=== PATIENT | female | born 1950 | race Caucasian/White ===

== ENCOUNTER 2019-01-07 11:24 | Observation (INO) ==
--- NOTE | 2019-01-07 11:58 | Emergency Department Note ---
Disposition Clinical Impression: UGI bleed Disposition: Admitted As Inpatient Condition: Good Forms: ED Satisfaction Letter Time of Disposition: 12:39 General Adult HPI - General Chief complaint: ED GI Bleed Stated complaint: ABD Pain Rectal Bleeding Time Seen by Provider: 01/07/19 11:42 Source: patient Limitations: no limitations - History of Present Illness HPI Narrative: Patient complains of 4 days of progressive upper abdominal discomfort and progressively darkening stool, to the point that it was jet black and sticky/tarry yesterday and the day before. No history of similar episodes in the past. She has had an episode or 2 of vomiting, nonbloody, nonbilious. She has not been taking Pepto-Bismol, multivitamins or iron supplementation. No history of ulcers or esophageal varices. No history of liver disease. She has never been a drinker. She has felt dizzy, no syncope or presyncope. No chest pain or shortness of breath. She does complain of fatigue. She is not on any anticoagulants. Pain Scale: 6 - Related Data Home Medications Medication Instructions Recorded Confirmed Aspirin [Lo-Dose Aspirin EC] 01/07/19 Dapagliflozin Propanediol [Farxiga] 01/07/19 Glyburide-Metformin 5-500 mg 01/07/19 Lisinopril [Zestril] 01/07/19 Potassium Chloride [Klor-Con 10] 01/07/19 Simvastatin [Zocor] 01/07/19 Allergies Allergy/AdvReac Type Severity Reaction Status Date / Time codeine Allergy Hives Verified 01/07/19 11:30 Limitations: ROS unobtainable due to patients medical condition Past Medical History - Past Medical History Medical history: Reports: diabetes, hypertension Psychiatric history: Reports: no psych history - Social History Smoking Status: Never smoker Smokeless Tobacco Status: No Alcohol use: Reports: none Drug use: Reports: none Physical Exam Vital signs noted, please see nurses notes. General: Well-developed, well-nourished patient lying in bed who appears non- toxic. Head: Atraumatic, normocephalic. Eyes: Sclera anicteric. Conjunctiva pink. ENT: Mucous membranes moist. Heart: Regular rate and rhythm without appreciable murmur. Lungs: Normal respiratory pattern without distress, lungs clear to auscultation b/l. Abdomen: Soft, localized epigastric tenderness to palpation, none in the right upper quadrant; non-distended, no guarding or peritoneal signs. Skin: Warm and dry without rash. No petechiae. Neurologic: Awake and alert with normal speech and mental status. Pupils are equal. Moves all extremities equally well. No focal deficits or lateralizing signs. Psychiatric: Mood and affect appropriate. Rectal: No visible hemorrhoids, dark brown stool, sent to the lab for Hemoccult testing. No palpable masses. - General Limitations: no limitations General appearance: alert, in no apparent distress Course Vital Signs Temperature 98.1 F 01/07/19 11:27 Pulse Rate 80 01/07/19 11:27 Respiratory Rate 18 01/07/19 11:27 Blood Pressure 131/79 01/07/19 11:27 O2 Sat by Pulse Oximetry 96 01/07/19 11:27 Temperature 98.1 F 01/07/19 11:27 Pulse Rate 80 01/07/19 11:27 Respiratory Rate 18 01/07/19 11:27 Blood Pressure 131/79 01/07/19 11:27 O2 Sat by Pulse Oximetry 96 01/07/19 11:27 Oxygen Delivery Oxygen Delivery Room Air Medical Decision Making - MDM Narrative Medical decision making narrative: Laboratory results reviewed. Discussed with Dr. Barroso on for endoscopy. The patient to come into the hospital with plans for scope tomorrow. We will admit to the hospitalist service. - Lab Data Result diagrams: 01/07/19 12:04 01/07/19 12:04 Lab Results 01/07/19 01/07/19 01/07/19 Range/Units 12:04 12:04 12:04 WBC 10.6 (4.3-11.1) K/mcL RBC 4.93 (3.82-4.97) M/mcL Hgb 14.1 (11.5-15.4) g/dL Hct 44.1 (35.3-44.9) % MCV 89.5 (83.0-100.0) fL MCH 28.6 (28.0-33.3) pg MCHC 32.0 (31.6-35.5) g/dL RDW 13.7 (11.5-14.5) % Plt Count 277 (140-400) K/mcL MPV 10.0 (9.4-12.4) fL PT 12.8 H (9.4-12.1) Seconds INR 1.1 Sodium 134 L (136-145) mEq/L Potassium 4.4 (3.5-5.1) mEq/L Chloride 102 (98-107) mEq/L Carbon Dioxide 23 (23-29) mEq/L BUN 20 (8-23) mg/dL Creatinine 0.87 (0.60-1.20) mg/dL Est GFR ( Amer) > 60 (> 60) Est GFR (Non-Af Amer) > 60 (> 60) BUN/Creatinine Ratio 23 (6-26) Glucose 113 H (70-105) mg/dL Calculated Osmolality 281 (280-300) Calcium 9.4 (8.6-10.3) mg/dL Stool Occult Bld Scrn (Negative) Blood Type 01/07/19 01/07/19 Range/Units 12:04 Unknown WBC (4.3-11.1) K/mcL RBC (3.82-4.97) M/mcL Hgb (11.5-15.4) g/dL Hct (35.3-44.9) % MCV (83.0-100.0) fL MCH (28.0-33.3) pg MCHC (31.6-35.5) g/dL RDW (11.5-14.5) % Plt Count (140-400) K/mcL MPV (9.4-12.4) fL PT (9.4-12.1) Seconds INR Sodium (136-145) mEq/L Potassium (3.5-5.1) mEq/L Chloride (98-107) mEq/L Carbon Dioxide (23-29) mEq/L BUN (8-23) mg/dL Creatinine (0.60-1.20) mg/dL Est GFR ( Amer) (> 60) Est GFR (Non-Af Amer) (> 60) BUN/Creatinine Ratio (6-26) Glucose (70-105) mg/dL Calculated Osmolality (280-300) Calcium (8.6-10.3) mg/dL Stool Occult Bld Scrn Positive A (Negative) Blood Type A POSITIVE
[2019-01-07 12:17] LABS: Hematocrit 44.1 % (35.3-44.9); Hemoglobin 14.1 g/dL (11.5-15.4); Mean Corpuscular Hemoglobin 28.6 pg (28.0-33.3); Mean Corpuscular Volume 89.5 fL (83.0-100.0); Platelet Count 277 K/mcL (140-400); Red Blood Count 4.93 M/mcL (3.82-4.97); Red Cell Distribution Width 13.7 % (11.5-14.5); White Blood Count 10.6 K/mcL (4.3-11.1)
[2019-01-07] MEDS ORDERED: Mag Hydrox/Al Hydrox/Simeth 30 ML UDC PO STA (12:31)
[2019-01-07 12:32] LABS: INR 1.1; Prothrombin Time 12.8 Seconds (9.4-12.1)
[2019-01-07] MEDS ORDERED: Pantoprazole 40 MG VIAL IVP ONE (12:32)
[2019-01-07 12:35] LABS: BUN/Creatinine Ratio 23 (6-26); Blood Urea Nitrogen 20 mg/dL (8-23); Calcium 9.4 mg/dL (8.6-10.3); Carbon Dioxide 23 mEq/L (23-29); Chloride 102 mEq/L (98-107); Glucose 113 mg/dL (70-105); Osmolality,Calculated 281 (280-300); Potassium 4.4 mEq/L (3.5-5.1); Sodium 134 mEq/L (136-145); eGFR For African Americans > 60 (> 60); eGFR For Non-African Americans > 60 (> 60)
--- NOTE | 2019-01-07 13:38 | Internal Med History&Physical ---
Date of Encounter: 01/07/19 Time of Encounter: 06:10 Internal Medicine - H&P: HPI Chief complaint: abdomen pain History of present illness: Ms. Jackson is a 68 year old female Patient we spent physical history significant for hypertension and diabetes who presented with 4 day history of progressive worsening of abdomen pain associated with jet black and sticky/tarry stool and several episode of nausea with non-bloody vomiting. the patient also reported feeling dizzy and lightheaded however she denied any loss of consciousness. The patient deny any history of liver disease, history of peptic ulcer disease or taking nonsteroidal anti-inflammatory regular basis. the patient was evaluated by the ER staff and Hemoccult per stool was positive. GI was consulted for further evaluation and management and decision was made to admit the patient for further evaluation in a.m. and possible upper and lower endoscopy. 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 - Social History Smoking Status: Never smoker Smokeless Tobacco Status: No Alcohol use: none Drug use: none - Family History Mother Living Status: Cause of : cancer Hx Family Cardiac Disorders: Yes Hx Family Neurologic Disorders: Yes (CVA) Father Living Status: Cause of : GA Hx Family Cardiac Disorders: Yes Hx Family Neurologic Disorders: Yes (CVA) Internal Medicine - H&P: Meds Dapagliflozin Propanediol [Farxiga] 10 mg PO DAILY 01/07/19 [History] Glyburide/Metformin HCl [Glyburide-Metformin 5-500 mg] 2 tab PO BID 01/07/19 [History] Lisinopril [Zestril] 40 mg PO DAILY 01/07/19 [History] Potassium Chloride [Klor-Con 10] 10 meq PO DAILY 01/07/19 [History] Simvastatin [Zocor] 20 mg PO HS 01/07/19 [History] Omeprazole 40 mg PO BID 30 Days #120 tablet. 01/08/19 [Rx] Sucralfate [Carafate] 1 gm PO QIDAC #120 tablet 01/08/19 [Rx] Allergy/AdvReac Type Severity Reaction Status Date / Time codeine Allergy Hives Verified 01/08/19 12:36 All Systems PM: A 10-system review of systems was performed and is negative for pertinent findings except as documented above in the HPI. - Constitutional Vitals: Temp Pulse Resp BP Pulse Ox 98.1 F 75 16 136/67 99 01/07/19 11:27 01/07/19 12:47 01/07/19 12:47 01/07/19 12:47 01/07/19 12:47 Exam: General: Alert and oriented, not in acute distress. Cardiovascular:Normal S1 & S2, No JVD. Pulse regular. Lungs: clear to auscultation, no wheezes/rales Abdomen:Soft, non-tender, no rigidity. Extremities:No deformity or swelling Neurological:Normal cognition and motor skills. Non-focal Internal Med - H&P Results - Labs CBC & Chem 7: 01/07/19 16:26 01/08/19 00:35 Labs: Short CBC 01/07/19 Range/Units 12:04 WBC 10.6 (4.3-11.1) K/mcL Hgb 14.1 (11.5-15.4) g/dL Hct 44.1 (35.3-44.9) % Plt Count 277 (140-400) K/mcL BMP 01/07/19 12:04 Sodium 134 L Potassium 4.4 Chloride 102 Carbon Dioxide 23 BUN 20 Creatinine 0.87 Glucose 113 H Calcium 9.4 - Assessment and Plan (1) UGI bleed Status: Acute Assessment and plan: GI bleeding DD *Gastroenteritis *Gastritis *PUD *Hemorrhoids *Divericulitis *Esophageal varices PLAN: - IVF - NPO - H/H now and q 8 hr - Type and screen 2 U PRBC - Protonix 40 mg IV QD/BID - GI consult-> EGD/Colonoscopy - O2 to keep SpO2 > 92% - CBCD, BMP, INR/PTT in AM - Compression stocking BLE for DVT prophylaxis (2) Hypertension Status: Acute Assessment and plan: we will continue home medication and continue to monitor blood pressure Qualifiers: Hypertension type: unspecified Qualified Code(s): I10 - Essential (primary) hypertension (3) Diabetes Status: Acute Assessment and plan: we will start insulin sliding scale with moderate coverage Qualifiers: Diabetes mellitus type: type 2 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
[2019-01-07] MEDS ORDERED: Ondansetron 4 MG/2 ML VIAL IVP PRN (16:17)
[2019-01-07] MEDS ORDERED: Naloxone 0.4 MG/ML INJ IVP PRN (16:17)
[2019-01-07 16:45] LABS: Basophils # 0.1 K/mcL (0.0-0.2); Basophils % 0.7 %; Eosinophils # 0.4 K/mcL (0.0-0.6); Eosinophils % 2.8 %; Hematocrit 43.1 % (35.3-44.9); Hemoglobin 13.7 g/dL (11.5-15.4); Immature Granulocytes % 0.3 % (0-4); Lymphocytes # 4.4 K/mcL (0.6-4.6); Lymphocytes % 32.9 %; Mean Corpuscular HGB Conc 31.8 g/dL (31.6-35.5); Mean Corpuscular Hemoglobin 28.6 pg (28.0-33.3); Mean Platelet Volume 9.8 fL (9.4-12.4); Monocytes # 1.1 K/mcL (0.0-1.3); Neutrophils # 7.4 K/mcL (1.6-8.9); Platelet Count 282 K/mcL (140-400); Red Blood Count 4.79 M/mcL (3.82-4.97); Red Cell Distribution Width 13.6 % (11.5-14.5); Segmented Neutrophils % 55.3 %; White Blood Count 13.3 K/mcL (4.3-11.1)
[2019-01-07] MEDS: Pantoprazole 40 MG VIAL IVP SCH (17:16)
[2019-01-07] MEDS ORDERED: D5% in Water 1,000 ML IVC PRN (19:43)
[2019-01-07] MEDS ORDERED: *HR* Dextrose 50 % in Water (Syg) 50 ML SYRINGE IVP PRN (19:43)
[2019-01-07] MEDS ORDERED: Dextrose Gel 15 GM/37.5 ML TUBE PO PRN ×2 (19:43)
[2019-01-07 22:01] LABS: Estimated Average Glucose 189 mg/dl
[2019-01-08] MEDS: Insulin LISPRO 300 UNITS/3 ML VIAL SQ SCH ×3 (00:03→15:29)
[2019-01-08 01:00] LABS: INR 1.1
[2019-01-08 01:02] LABS: Activated Partial Thrombo Time 25.7 Seconds (26.0-36.0)
[2019-01-08 01:12] LABS: Alanine Aminotransferase 19 Units/L (7-52); Albumin 3.8 g/dL (3.5-5.7); Albumin/Globulin Ratio 1.2 (1.1-2.2); Alkaline Phosphatase 49 Units/L (34-104); Aspartate Amino Transferase 16 Units/L (13-39); BUN/Creatinine Ratio 17 (6-26); Bilirubin,Total 0.4 mg/dL (0.3-1.0); Blood Urea Nitrogen 16 mg/dL (8-23); Calcium 8.9 mg/dL (8.6-10.3); Carbon Dioxide 22 mEq/L (23-29); Chloride 100 mEq/L (98-107); Chol/HDL Ratio 3.9 (0-4.9); Cholesterol 122 mg/dL (< 200); Globulin 3.1 g/dL (2.4-3.5); Glucose 248 mg/dL (70-105); HDL Cholesterol 31 mg/dL (40-59); LDL Cholesterol,Calculated 55 mg/dL (0-99); Magnesium 1.9 mg/dL (1.6-2.6); Osmolality,Calculated 283 (280-300); Potassium 3.8 mEq/L (3.5-5.1); Sodium 132 mEq/L (136-145); Total Protein 6.9 g/dL (6.4-8.9); Triglycerides 181 mg/dL (< 150); eGFR For African Americans > 60 (> 60); eGFR For Non-African Americans > 60 (> 60)
[2019-01-08] MEDS: Pantoprazole 40 MG VIAL IVP SCH (06:00)
[2019-01-08] MEDS ORDERED: *HR* Midazolam HCl 5 MG/5 ML VIAL IVP ONE (12:01)
[2019-01-08] MEDS ORDERED: *HR* FentaNYL (PF) 100 MCG/2 ML VIAL ONE (12:01)
[2019-01-08 13:31] VITALS: BP 141/82
--- NOTE | 2019-01-08 13:45 | Discharge Summary ---
- NOTES TO OUTPATIENT PROVIDER Notes to Outpatient Provider: Follow up with surgery in 4 weeks for repeat EGD Orders not resulted at time of discharge: Pending orders 01/08/19 12:37 Surgical Pathology [PTH] Routine Date of Encounter: 01/08/19 Time of Encounter: 13:00 - Discharge Diagnosis (1) UGI bleed Priority: Secondary Status: Acute (2) Hypertension Priority: Secondary Status: Acute Qualifiers: Hypertension type: unspecified Qualified Code(s): I10 - Essential (primary) hypertension (3) Diabetes Priority: Secondary Status: Acute Qualifiers: Diabetes mellitus type: type 2 Diabetes mellitus alf insulin use: without alf use Diabetes mellitus complication status: without complication Qualified Code(s): E11.9 - Type 2 diabetes mellitus without complications (4) DVT prophylaxis Priority: Secondary Status: Acute (5) Duodenal ulcer Priority: Primary Status: Acute Hospital course: Ms. Jackson is a 68 year old female with HTN and diabetes, who was admitted for one week history of melena. Hb 14.1 - 13.7, hemodynamically stable. EGD/colonoscopy was done on 01/07 which showed 8 mm, cratered, duodenal ulcer with adherent clot as well as a few small localized angiodysplastic lesions with typical arboirzation. No treatment was necessary. Patient will be discharged home on Prilosec and Carafate with Surgery follow up in 4 weeks for repeat EGD. Discharge discussed with: patient, nurse, analytics consultant - Time Spent with Patient Total time spent providing and/or coordinating discharge services: 27 mins - Discharge Medications Prescriptions: New Sucralfate [Carafate] 1 gm PO QIDAC #120 tablet RX: Omeprazole 40 mg PO BID 30 Days #120 tablet.dr [place] Action RX: Simvastatin [Zocor] 20 mg PO HS RX: Potassium Chloride [Klor-Con 10] 10 meq PO DAILY RX: Lisinopril [Zestril] 40 mg PO DAILY Glyburide/Metformin HCl [Glyburide-Metformin 5-500 mg] 2 tab PO BID Dapagliflozin Propanediol [Farxiga] 10 mg PO DAILY RX: Aspirin [Lo-Dose Aspirin EC] 81 mg PO DAILY Home Medications: Aspirin [Lo-Dose Aspirin EC] 81 mg PO DAILY 01/07/19 [History] Dapagliflozin Propanediol [Farxiga] 10 mg PO DAILY 01/07/19 [History] Glyburide/Metformin HCl [Glyburide-Metformin 5-500 mg] 2 tab PO BID 01/07/19 [History] Lisinopril [Zestril] 40 mg PO DAILY 01/07/19 [History] Potassium Chloride [Klor-Con 10] 10 meq PO DAILY 01/07/19 [History] Simvastatin [Zocor] 20 mg PO HS 01/07/19 [History] Omeprazole 40 mg PO BID 30 Days #120 tablet. 01/08/19 [Rx] Sucralfate [Carafate] 1 gm PO QIDAC #120 tablet 01/08/19 [Rx] Allergies/Adverse Reactions: Allergy/AdvReac Type Severity Reaction Status Date / Time codeine Allergy Hives Verified 01/08/19 12:36 Date of admission: 01/07/19 13:05 Primary care physician: Srinivas Gardner MD Consults: 01/07/19 19:40 Consult to Surgery [CONS] Routine Consulting Provider: Acute Care Surgery Reason for Consult: GI bleed ER spoke with Dr. Barroso Time Notified: 06:41 Call Completed: Yes - Constitutional Vitals: Temp Pulse Resp BP Pulse Ox 98.4 F 70 14 141/82 96 01/08/19 13:28 01/08/19 13:28 01/08/19 13:28 01/08/19 13:28 01/08/19 13:28 Exam: General: Alert and oriented, not in acute distress. Cardiovascular:Normal S1 & S2, No JVD. Pulse regular. Lungs: clear to auscultation, no wheezes/rales Abdomen:Soft, non-tender, no rigidity. Extremities:No deformity or swelling Neurological:Normal cognition and motor skills. Non-focal - Patient Status Disposition: Home, Self-Care Condition: Good Functional capacity at discharge: independent ambulation Overall status at discharge: patient is progressing back to baseline - Discharge Instructions Instructions: Diabetes Mellitus Type 2 in Adults (DC), Chronic Hypertension (DC) Follow Up With: Srinivas Gardner MD [Primary Care Provider] - Agustín Barroso MD [Non-Partnered Physician] - - Diet and Activity Activity: resume usual activities as tolerated Diet: advance to your usual diet
--- NOTE | 2019-01-08 15:31 | AcuteCareSurgery Progress Note ---
Date of Encounter: 01/08/19 Time of Encounter: 01:15 - Assessment and Plan (1) UGI bleed Current Visit: Yes Status: Acute * . (2) Duodenal ulcer Current Visit: Yes Status: Acute : Objective Vital Signs - Last 8 Hours Temp Pulse Resp BP Pulse Ox 01/08/19 13:28 98.4 F 70 14 141/82 96 01/08/19 12:55 79 16 120/55 99 01/08/19 12:50 83 16 122/58 99 01/08/19 12:45 77 16 115/52 97 01/08/19 12:40 78 16 107/51 97 01/08/19 12:35 91 16 134/65 98 01/08/19 12:30 90 16 149/70 99 01/08/19 12:25 72 16 130/66 99 01/08/19 12:15 98.0 F 6 16 123/72 98 01/08/19 11:07 98.2 F 73 16 123/72 97 Intake and Output 01/07/19 01/08/19 01/08/19 23:59 07:59 15:59 Other: Stool Size Large Stool Consistency liquid # Bowel Movements 1 Weight 89.902 kg Blood Glucose* 234 136 Patient Weight 01/08/19 23:59 Weight 89.902 kg - Labs 01/07/19 16:26 01/08/19 00:35 Diabetes panel 01/07/19 01/08/19 Range/Units 21:45 00:35 Sodium 132 L (136-145) mEq/L Potassium 3.8 (3.5-5.1) mEq/L Chloride 100 (98-107) mEq/L Carbon Dioxide 22 L (23-29) mEq/L BUN 16 (8-23) mg/dL Creatinine 0.93 (0.60-1.20) mg/dL Glucose 248 H (70-105) mg/dL Hemoglobin A1c 8.2 H ( - 5.6) % Calcium 8.9 (8.6-10.3) mg/dL AST 16 (13-39) Units/L ALT 19 (7-52) Units/L Alkaline Phosphatase 49 (34-104) Units/L Albumin 3.8 (3.5-5.7) g/dL Triglycerides 181 H (< 150) mg/dL HDL Cholesterol 31 L (40-59) mg/dL Calcium panel 01/08/19 Range/Units 00:35 Calcium 8.9 (8.6-10.3) mg/dL Phosphorus 3.0 (2.7-4.5) mg/dL Albumin 3.8 (3.5-5.7) g/dL Pituitary panel 01/08/19 Range/Units 00:35 Sodium 132 L (136-145) mEq/L Potassium 3.8 (3.5-5.1) mEq/L Chloride 100 (98-107) mEq/L Carbon Dioxide 22 L (23-29) mEq/L BUN 16 (8-23) mg/dL Creatinine 0.93 (0.60-1.20) mg/dL Glucose 248 H (70-105) mg/dL Calcium 8.9 (8.6-10.3) mg/dL Adrenal panel 01/08/19 Range/Units 00:35 Sodium 132 L (136-145) mEq/L Potassium 3.8 (3.5-5.1) mEq/L Chloride 100 (98-107) mEq/L Carbon Dioxide 22 L (23-29) mEq/L BUN 16 (8-23) mg/dL Creatinine 0.93 (0.60-1.20) mg/dL Glucose 248 H (70-105) mg/dL Calcium 8.9 (8.6-10.3) mg/dL Total Bilirubin 0.4 (0.3-1.0) mg/dL AST 16 (13-39) Units/L ALT 19 (7-52) Units/L Alkaline Phosphatase 49 (34-104) Units/L Albumin 3.8 (3.5-5.7) g/dL Consult Discharge Plan - Plan Instructions: Sucralfate (By mouth), Omeprazole (By mouth), Diet for Ulcers and Gastritis (GEN), Diabetes Mellitus Type 2 in Adults (DC), Chronic Hypertension (DC) Referrals: Agustín Barroso MD [Non-Partnered Physician] - (office will call you with an appointment day/time.) Srinivas Gardner MD [Primary Care Provider] - (Please call to make an appointment to follow up within 7 days.) Prescriptions: Sucralfate [Carafate] 1 gm PO QIDAC #120 tablet Omeprazole 40 mg PO BID 30 Days #120 tablet.
--- NOTE | 2019-01-08 15:35 | Event Note ---
<Jerson Juares P - Last Filed: 01/08/19 15:36> Date of Encounter: 01/08/19 Time of Encounter: 01:00 68 year old female Patient with PMH of hypertension and diabetes who presented with 4 day history of progressive worsening of abdomen pain associated with jet black and sticky/tarry stool and several episode of nausea with non-bloody vomiting. * Acute care surgery was consulted for Gi bleeding . * Occult blood positive stool was positive * UGI endoscopy showed; non bleeding duodenal ulcer and Duodenal inflammation : biopsy taken and sent for histopathology. Plan : * Medical management with PPI * Patient can follow-up in outpatient after 2 weeks <Agustín Barroso J - Last Filed: 01/08/19 18:07> Date of Encounter: 01/08/19 s/p EGD, colonoscopy duodenal ulcer with adherent clot diverticulosis PPI, carafate for management general surgery will sign off follow up in 4 weeks
== END 2019-01-08 15:33 | disposition home or self-care (01) ==
LOC: EMEROOARM 11:24 → 3BNU 11:24 → SUATTDRO 13:05 → 3BNU 14:05
PROVIDERS: ADMIT Internal Medicine Nephrology; ATTEND Internal Medicine
PROC: ENDOEBX (2019-01-08 11:30)